=== PATIENT | female | born 1995 | race Caucasian/White ===

== ENCOUNTER 2017-01-27 00:14 | Emergency (ER) | payer OTHER ==
[2017-01-27] MEDS ORDERED: ACETAMINOPHEN TAB 325 MG TAB PO STA (02:16)
[2017-01-27 02:40] LABS: Appearance,Urine Clear (Clear); Bilirubin,Urine Negative (Negative); Glucose,Urine (UA) Negative (Negative); Ketones,Urine Negative (Negative); Leukocyte Esterase,Urine Negative (Negative); Nitrite,Urine Negative (Negative); Protein,Urine Negative (Negative); Specific Gravity,Urine 1.007 (1.001-1.035); UA Billing (MACRO vs. MICRO) CHEM; Urobilinogen,Urine <2.0 mg/dL (<2.0)
--- NOTE | 2017-01-27 03:03 | ED ---
Fever HPI - General Chief Complaint: Fever Stated Complaint: Fever/Aches/Eye Problem Time Seen by Provider: 01/27/17 01:57 Source: patient, RN notes reviewed Mode of arrival: ambulatory Limitations: no limitations - History of Present Illness Initial Comments: Patient is a 20-year-old female presents to the emergency room for evaluation of fever. Patient states today she's been having increasing higher fevers. Patient states she took Tylenol at 9 PM this evening. Patient states at 11:00 her temperature was spiking. Patient is having slight pain and noticed swelling on the right side of her neck. Patient denies any throat pain or trouble swallowing. Patient does state that she's had a slightly productive cough the past few days. Patient also states that her left eye has been very red and itchy. Patient states this started yesterday. Patient states she woke up this morning with crust in her left eye. Patient does state that she was exposed to someone with pink eye. Patient denies scratching her eye or getting anything in her eye. Patient denies pain or burning during urination, trouble urinating or blood in urine. Patient denies abdominal pain. Patient states she is up-to-date on all of her immunizations - Related Data Previous Rx's Medication Instructions Recorded Polymyxin B-Trimethoprim Ophth 2 drops LEFT EYE Q4H 10 Days 01/27/17 [Polytrim Opthalmic] Allergies Allergy/AdvReac Type Severity Reaction Status Date / Time No Known Allergies Allergy Verified 01/27/17 00:30 Review of Systems ROS Statement: Those systems with pertinent positive or pertinent negative responses have been documented in the HPI. ROS Other: All systems not noted in ROS Statement are negative. Past Medical History Past Medical History: No Reported History History of Any Multi-Drug Resistant Organisms: None Reported Past Surgical History: No Surgical Hx Reported Past Psychological History: No Psychological Hx Reported Smoking Status: Never smoker Past Alcohol Use History: None Reported Past Drug Use History: Marijuana General Exam - General Exam Comments Initial Comments: sitting in exam room, no acute distress. Limitations: no limitations General appearance: alert, in no apparent distress Head exam: Present: atraumatic, normocephalic Expanded Eyelids: Normal Inspection: Bilateral Pupils: Regular, Round: Bilateral, Reactive: Bilateral Sclera/Conjunctival: Injection: Left ENT exam: Present: normal exam, normal oropharynx, mucous membranes moist, TM's normal bilaterally, normal external ear exam Neck exam: Present: normal inspection, full ROM. Absent: tenderness, lymphadenopathy Respiratory exam: Present: normal lung sounds bilaterally. Absent: respiratory distress Cardiovascular Exam: Present: normal rhythm, tachycardia, normal heart sounds GI/Abdominal exam: Present: soft, normal bowel sounds. Absent: distended, tenderness, guarding, rebound, rigid Extremities exam: Present: normal inspection Back exam: Present: normal inspection Neurological exam: Present: alert, oriented X3, CN II-XII intact, normal gait Psychiatric exam: Present: normal affect, normal mood Skin exam: Present: warm, dry, intact, normal color. Absent: rash Course Vital Signs 01/27/17 01/27/17 00:26 04:30 Temperature 100.4 F H 98.6 F Pulse Rate 128 H 70 Respiratory 18 16 Rate Blood Pressure 134/85 122/74 O2 Sat by Pulse 98 98 Oximetry Medical Decision Making - Medical Decision Making Patient is a 21-year-old female presents emergency room for evaluation of fever. Rapid strep negative. Heterophile negative. Chest x-ray negative for any acute findings. Urinalysis not suspicious for any signs of infection. Patient's symptoms most likely viral. Advised patient to continue alternating Tylenol and Motrin for fever. Patient be placed on antibiotic eyedrops for left eye conjunctivitis. Patient advised to follow-up with primary care provider 24-48 hours for reevaluation. Patient advised to return for worsening symptoms. Patient states she understands everything that was discussed with her. Case discussed Dr. Issa. - Lab Data Lab Results 01/27/17 01/27/17 01/27/17 Range/Units 02:20 02:20 02:20 Urine Color Light Yellow Urine Appearance Clear (Clear) Urine pH 7.0 (5.0-8.0) Ur Specific [place] 1.007 (1.001-1.035) Urine Protein Negative (Negative) Urine Glucose (UA) Negative (Negative) Urine Ketones Negative (Negative) Urine Blood Negative (Negative) Urine Nitrite Negative (Negative) Urine Bilirubin Negative (Negative) Urine Urobilinogen <2.0 (<2.0) mg/dL Ur Leukocyte Esterase Negative (Negative) Urine HCG, Qual Not Detected (Not Detectd) Heterophile Antibody (Negative) Group A Strep Rapid Negative (Negative) 01/27/17 Range/Units 03:10 Urine Color Urine Appearance (Clear) Urine pH (5.0-8.0) Ur Specific [place] (1.001-1.035) Urine Protein (Negative) Urine Glucose (UA) (Negative) Urine Ketones (Negative) Urine Blood (Negative) Urine Nitrite (Negative) Urine Bilirubin (Negative) Urine Urobilinogen (<2.0) mg/dL Ur Leukocyte Esterase (Negative) Urine HCG, Qual (Not Detectd) Heterophile Antibody Negative (Negative) Group A Strep Rapid (Negative) - Radiology Data Radiology results: report reviewed, image reviewed Disposition Clinical Impression: Conjunctivitis, left eye, Viral syndrome Disposition: HOME SELF-CARE Condition: Good Instructions: Fever in Adults (ED), Conjunctivitis (ED) Additional Instructions: Apply eyedrops as directed. Wash hands frequently. Clean all pillowcases, sheets, bedding. Alternate Tylenol and Motrin every 3 hours for fever. Please follow up with primary care provider in 1-2 days for reevaluation. If any new symptom arises or symptoms worsen, return to ER as soon as possible. Prescriptions: Polymyxin B-Trimethoprim Ophth [Polytrim Opthalmic] 2 drops LEFT EYE Q4H 10 Days Referrals: Lidia Mcleod MD [STAFF PHYSICIAN] - 1-2 days Time of Disposition: 04:09
--- NOTE | 2017-01-27 04:01 | XR ---
EXAM: XR Chest, 2 Views CLINICAL HISTORY: Reason: Pain TECHNIQUE: Frontal and lateral views of the chest. COMPARISON: No relevant prior studies available. FINDINGS: Lungs: Unremarkable. No consolidation. Pleural space: Unremarkable. No pneumothorax. Heart: Unremarkable. No cardiomegaly. Mediastinum: Unremarkable. Bones/joints: Unremarkable. IMPRESSION: Normal chest x-rays.
[2017-01-27 04:31] VITALS: BP 122/74; PULSE 70; RESP 16; TEMP 98.6
== END 2017-01-27 04:30 | disposition home or self-care (01) ==
LOC: EC 00:14
DX: H10.9 Unspecified conjunctivitis (principal); B34.9 Viral infection, unspecified
CPT/HCPCS: 36415; 71020; 81003; 81025; 86308; 87081; 87430; 99283